=== PATIENT | male | born 1955 | race Caucasian/White ===

== ENCOUNTER → 2024-06-29 | Outpatient (CLI) | payer MEDICARE, BC | END | disposition home or self-care (01) | LOC: RAD 13:28 | PROVIDERS: ATTEND Nurse Practitioner Family | DX: S80.12XA Contusion of left lower leg, initial encounter (principal); X58.XXXA Exposure to other specified factors, initial encounter; Y93.89 Activity, other specified; Y92.89 Other specified places as the place of occurrence of the external cause; Y99.8 Other external cause status | CPT/HCPCS: 73590-LT ==

== ENCOUNTER 2024-09-29 21:37 | Emergency (ER) | payer MEDICARE, BC ==
[~2024-09-29] VITALS: Ht 175.3 cm; Wt 77.1 kg
[2024-09-29 21:50] VITALS: BP 165/82; PULSE 60; RESP 18; TEMP 97.9; O2SAT 98
[2024-09-29] MEDS ORDERED: TORADOL ONE (21:51)
[2024-09-29] MEDS: TORADOL IM STA (21:55)
[2024-09-29 22:49] VITALS: BP 156/88; PULSE 62; RESP 18; TEMP 97.9; O2SAT 97
[2024-09-29] MEDS ORDERED: KETO10TA PO (23:14)
== END 2024-09-29 23:22 | disposition home or self-care (01) ==
LOC: ER 21:37
DX: M79.18 Myalgia, other site (principal); W19.XXXA Unspecified fall, initial encounter; Y93.89 Activity, other specified; Y92.89 Other specified places as the place of occurrence of the external cause; Y99.8 Other external cause status
CPT/HCPCS: 99284; 96372; 73070; 73090; 73130; J1885

== ENCOUNTER 2025-04-11 13:35 | Emergency (ER) | payer MEDICARE, BC ==
[~2025-04-11] VITALS: Ht 172.7 cm; Wt 68.0 kg
[~2025-04-11 13:35] MED LIST: KETO10TA PO
[2025-04-11 13:42] VITALS: BP 165/95; PULSE 61; RESP 18; TEMP 97.7; O2SAT 99
[2025-04-11] MEDS ORDERED: NS 1000ML 1,000 ML ONE (14:01)
[2025-04-11] MEDS: NS 1000ML 1,000 ML IV STA (14:04)
[2025-04-11 14:10] LABS: BASOPHIL # 0.0 10^3/uL (0.0-0.1); BASOPHIL % 0.7 % (0.2-1.2); EOSINOPHIL # 0.2 10^3/uL (0.0-0.2); EOSINOPHIL % 2.7 % (0.0-5.0); HEMATOCRIT(ML) 43.9 % (37.0-53.0); IG % 0.20 % (0.00-0.50); LYMPHOCYTES # 1.38 10^3/uL1 (1.0-4.8); LYMPHOCYTES % 24.6 % (24.0-44.0); MEAN CORP HGB 31.5 pg (26-34); MEAN CORP HGB CONCENTRATION 33.3 g/dL (33-36.5); MEAN CORP VOLUME 94.6 fL (78-100); MONOCYTES # 0.6 10^3/uL (0.3-0.8); MONOCYTES % 11.3 % (5.0-12.0); NEUTROPHIL # 3.4 10^3/uL (1.8-7.7); NEUTROPHILS % 60.5 % (41.0-85.0); RED BLOOD CELL 4.64 10^6/uL (4.50-5.90); RED CELL DISTRIBUTION WIDTH 12.4 % (11.5-14.5); WHITE BLOOD CELL 5.6 10^3/uL (4.5-11.0)
[2025-04-11 14:12] LABS: LEUKOCYTE ESTERASE ,URINE NEGATIVE (NEGATIVE); NITRATE,URINE NEGATIVE (NEGATIVE)
[2025-04-11 14:13] LABS: APPEARANCE,URINE HAZY; UA COLOR YELLOW
[2025-04-11 14:26] LABS: ALANINE AMINOTRANSFERASE(ML) 23.0 U/L (12-78); ALBUMIN(ML) 4.1 g/dL (3.4-5.0); CREATININE SERUM 1.01 mg/dL (0.59-1.40); EST GFR, NON-AA 73.5 (>/=60)
[2025-04-11 14:35] VITALS: BP 188/87; PULSE 58; RESP 18; O2SAT 98
[2025-04-11] MEDS ORDERED: APRESOLINE ONE (15:19)
[2025-04-11] MEDS: APRESOLINE IV STA (15:24)
[2025-04-11 15:42] VITALS: BP 190/90; PULSE 59; RESP 18; O2SAT 98
== END 2025-04-11 16:23 | disposition home or self-care (01) ==
LOC: ER 13:35
DX: R10.32 Left lower quadrant pain (principal); I10 Essential (primary) hypertension
CPT/HCPCS: 99285; 74177; 96374; 96361; 81003; 80053; 85025; 36415; J7030; J0360; Q9967; Q9965